=== PATIENT | female | born 1950 | race Two or more races ===

== ENCOUNTER → 2017-09-14 | Emergency (ER) | payer OTHER ==
[~2017-09-14] MED LIST: ATENOLOL50 MG; MOTION SICKNESS25 M1 PO; PNEU16DI2
== END | disposition home or self-care (01) ==
LOC: ER 09:42
DX: M54.41 Lumbago with sciatica, right side (principal)

== ENCOUNTER 2017-12-19 08:29 | Outpatient (CLI) | payer OTHER | END 2017-12-19 09:52 | disposition home or self-care (01) | LOC: RAD 501 08:29 | DX: I10 Essential (primary) hypertension (principal); M54.5 Low back pain; E78.9 Disorder of lipoprotein metabolism, unspecified; E55.9 Vitamin D deficiency, unspecified; M81.0 Age-related osteoporosis without current pathological fracture; E03.9 Hypothyroidism, unspecified ==

== ENCOUNTER 2018-07-31 08:42 | Outpatient (CLI) | payer OTHER | END 2018-08-01 06:49 | disposition home or self-care (01) | LOC: SONOGRAMA 08:42 → MAMO-SONO 08:45 → SONOGRAMA 08-01 06:49 | DX: E03.8 Other specified hypothyroidism (principal); M54.5 Low back pain; E78.9 Disorder of lipoprotein metabolism, unspecified ==

== ENCOUNTER 2021-09-03 08:30 | Outpatient (CLI) | payer OTHER | END 2021-09-03 08:36 | disposition home or self-care (01) | LOC: MAMO-SONO 08:30 | PROVIDERS: ATTEND Internal Medicine | DX: E03.9 Hypothyroidism, unspecified (principal); M54.50 Low back pain, unspecified; E78.9 Disorder of lipoprotein metabolism, unspecified; E11.51 Type 2 diabetes mellitus with diabetic peripheral angiopathy without gangrene; E11.9 Type 2 diabetes mellitus without complications; G62.9 Polyneuropathy, unspecified ==

== ENCOUNTER 2021-11-05 07:15 | Emergency (ER) | payer OTHER ==
[~2021-11-05] VITALS: Ht 154.9 cm; Wt 65.8 kg
== END 2021-11-05 08:44 | disposition home or self-care (01) ==
LOC: ER 07:15
DX: R21 Rash and other nonspecific skin eruption (principal)

== ENCOUNTER 2022-08-25 07:49 | Emergency (ER) | payer OTHER ==
[~2022-08-25] VITALS: Ht 154.9 cm; Wt 63.5 kg
[2022-08-25] MEDS ORDERED: NORFLEX100MG PO (11:20)
== END 2022-08-25 12:02 | disposition home or self-care (01) ==
LOC: ER 07:49
DX: M54.9 Dorsalgia, unspecified (principal)

== ENCOUNTER 2025-06-14 08:21 | Emergency (ER) | payer OTHER ==
[~2025-06-14] VITALS: Ht 121.9 cm; Wt 61.7 kg
[~2025-06-14 08:21] MED LIST changes: +NORFLEX100MG PO
[2025-06-14] MEDS ORDERED: TOPROL XL50 M1 PO (09:05)
[2025-06-14] MEDS ORDERED: 0.9 % SODIUM CHLORIDE 1,000 ML IV ONE (09:45)
[2025-06-14] MEDS ORDERED: MORPHINE SULFATE 2 MG/ML SYRINGE IV ONE (09:45)
[2025-06-14] MEDS ORDERED: FAMOTIDINE/PF 20 MG/2 ML VIAL IV PUSH ONE (09:45)
[2025-06-14 10:47] LABS: BASO % 0.3 % (0.1-1.2); EOS # 0.14 (0.04-0.54); EOS % 1.2 % (0.7-7.0); LYMPH # 2.29 (1.18-3.74); LYMPH % 20.4 % (19.3-53.1); MEAN PLATELET VOLUME 10.70 fl (9.4-12.4); MONO # 0.52 (0.24-0.82); MONO % 4.6 % (4.7-12.5); NEUT # 8.19 (1.56-6.13); NEUT % 73.1 % (34.0-71.1); RED CELL DISTRIBUTION WIDTH 14.6 % (11.6-14.4)
[2025-06-14 11:06] LABS: ALT/SGPT 38.0 U/L (12-78); AST/SGOT 30.0 U/L (15-37); BILIRUBIN TOTAL 0.47 mg/dL (0.3-1.2); BILIRUBIN,CONJUGATED 0.12 mg/dL (0.0-0.2); BUN CREA RATIO 19.0 (7.0-25.0); CREATININE SERUM 0.88 mg/dL (0.55-1.02); GFR 62.64; GLUCOSE FASTING 130.0 mg/dL (65-100); OSMOLALITY SERUM 286.0 MOSM/KG (275-295)
[2025-06-14 12:12] LABS: URINE APPEARANCE Clear; URINE BILIRRUBIN Negative (NEGATIVE); URINE BLOOD Trace; URINE COLOR Yellow; URINE GLUCOSE Negative (NEGATIVE); URINE KETONE Negative (NEGATIVE); URINE LEUKOCYTE Small; URINE NITRATE Negative; URINE PROTEIN Negative (NEGATIVE); URINE UROBILINOGEN 0.2 E.U./dl
[2025-06-14 12:15] LABS: URINE BACTERIA 94.8 uL (0.0-1933); URINE EPITHELIAL CELLS 22.4 uL (0.0-38.8); URINE RBC 7.0 uL (0.0-20.8); URINE WBC 16.5 uL (0.0-23.2)
[2025-06-14 12:16] LABS: URINE CAST 0.00 uL (0.0-1.40)
== END 2025-06-14 16:00 | disposition home or self-care (01) ==
LOC: ER 08:22
PROVIDERS: Emergency Medicine
DX: R10.84 Generalized abdominal pain (principal); Z88.6 Allergy status to analgesic agent